=== PATIENT | female | born 1935 | race Caucasian/White ===

== ENCOUNTER → 2016-08-21 | Outpatient (CLI) | payer MEDICARE ==
[~2016-08-21] MED LIST: AMLO5TAB22 PO; CIPR500T4 PO; CRES10TA PO; GLUCTAB PO; LEVO100T4 PO; METO5TAB PO; SERO200T2 PO; XANA0.5T PO
--- NOTE | 2016-08-24 10:42 | RADRPT ---
EXAM DATE/TIME: 08/21/2016 15:23 [facility] COMPARISON : No previous studies available for comparison. INDICATIONS : Evaluate images and clinical chart for possible cryoablation procedure. The patient's outside imaging was reviewed. There is a 2.1 cm solid appearing mass arising from the u pper pole the right kidney. There was a previous attempted biopsy of this at an outside institution [facility] due to intervening pulmonary parenchyma this was not performed. Review of the images would sug gest with intubation low tidel volume ventilation this lesion would be amenable to biopsy and cryoabl ation. IMPRESSION: The right upper pole renal mass is an acceptable location for biopsy and cryoablation. Otilio Acosta MD on August 24, 2016 at 10:37 Board Certified Radiologist. This report was verified electronically.
== END ==
LOC: HRAD 15:22
PROVIDERS: ATTEND Urology
DX: N28.89 Other specified disorders of kidney and ureter (principal)

== ENCOUNTER 2016-08-31 14:15 | Day surgery (SDC) | payer MEDICARE, MEDICAID ==
--- NOTE | 2016-08-31 16:31 | RADRPT ---
EXAM DATE/TIME: 08/31/2016 14:44 [facility] COMPARISON : INDICATIONS : CONSULT FOR RENAL CRYOABLATION OBJECTIVE: Temperature: 98.2 Heart Rate: 60 Blood Pressure: 161/92 Respiratory: 20 Oximetry: 93 PNEUMONIA VACCINE: HISTORY OF PRESENT ILLNESS: The patient is an 81-year-old who was noted to have a 2.5 cm enhancing mass in the upper pole the rig ht kidney found on CT examination of 12/2015. The patient has had multiple CT scans performed at [facility]. There was concern on the CT scan the mass had slightly increased in size. The patient w as sent for evaluation for possible cryoablation. PAST MEDICAL HISTORY : 1. Hypercholesterolemia. 2. Hypertension. 3. Diabetes mellitus 2. 4. ANXIETY 5. DEPRESSION 6. L1 COMPRESSION FX PAST SURGICAL HISTORY : 1. PPM 2. HYSTERECTOMY SOCIAL HISTORY : No alcohol use. ALLERGIES: 1. Penicillin 2. Sulfa 3. TYLENOL MEDICATIONS: 1. METFORMIN 500 mg t.i.d. 2. MECLIZINE 25 mg prn 3. CHLORTHALIDONE 25 mg q.d. 4. LEVOTHYROXIN 100 mcg q.d. 5. RANITIDINE 150 mg q.h.s. ROSUVASTATIN 10 mg q.d. LEVETIRACETAM 500 mg b.i.d. RISPERIDONE 0.25 mg q.h.s. CLONIDINE 0.3 mg q.d. QUETIAPINE 25 mg b.i.d. PHYSICAL EXAMINATION: CV: Regular rate and rhythm. Lungs: Clear to auscultation. IMAGING STUDIES: The patient's imaging studies from [facility] were reviewed and compared back to the images from 01/04 performed at [facility]. The imaging demonstrates a 2.5 cm enhancing mass in the upper pole of the right kidney. ASSESSMENT: The patient has a 2.5 cm enhancing mass in upper pole right kidney I do believe it is amenable to cry oablation however, the patient at present has active diarrhea. She states she has had this for approx imately 1-2 months. My concern with the dressing this mass at this time as a possibility this represe nts clostridial or another infectious diarrhea. I would recommend this patient be evaluated by a susan roenterologist for treatment of the diarrhea then we can proceed with ablation of the right upper lakisha e mid renal mass. PLAN: The patient will need to have per diarrhea addressed prior to proceeding with ablation of the right u pper pole mass. Referral to a senior data warehouse developer may be warranted. Once this has been evaluated and w e are sure this is noninfectious we'll be happy to proceed with ablation. Please reconsult us at that time. TIME SPENT: 20 minutes. Otilio Acosta MD on August 31, 2016 at 16:21 Board Certified Radiologist. This report was verified electronically.
== END 2016-08-31 15:25 | disposition home or self-care (01) ==
LOC: HROP 14:15 → HRIP 14:17 → HROP 15:25
PROVIDERS: ATTEND Urology
DX: N28.89 Other specified disorders of kidney and ureter (principal); Z53.09 Procedure and treatment not carried out because of other contraindication; R19.7 Diarrhea, unspecified; I10 Essential (primary) hypertension; E11.9 Type 2 diabetes mellitus without complications; E78.00 Pure hypercholesterolemia, unspecified; F32.9 Major depressive disorder, single episode, unspecified; F41.9 Anxiety disorder, unspecified; Z88.6 Allergy status to analgesic agent; Z88.0 Allergy status to penicillin; Z88.2 Allergy status to sulfonamides; Z79.84 Long term (current) use of oral hypoglycemic drugs